=== PATIENT | female | born 1995 | race American Indian/Alaskan Native ===

== ENCOUNTER 2018-04-18 17:47 | Inpatient (IN) | payer BC, MEDICAID ==
[2018-04-18] MEDS ORDERED: BRETHINE SUB-Q PRN (22:09)
[2018-04-18] MEDS ORDERED: NUBAIN IV PRN (22:09)
[2018-04-18] MEDS ORDERED: SUBLIMAZE IV PRN (22:09)
[2018-04-18] MEDS ORDERED: STADOL IV PRN (22:09)
[2018-04-18] MEDS ORDERED: NARCAN 0.4 MG/1 ML IV PRN (22:09)
[2018-04-18] MEDS ORDERED: MINERAL OIL PO PRN (22:09)
[2018-04-18] MEDS ORDERED: ZOFRAN IV PRN (22:09)
[2018-04-18] MEDS ORDERED: BRETHINE IVP PRN (22:09)
[2018-04-18] MEDS ORDERED: XYLOCAINE 2% INFILTRATI ONE (22:09)
[2018-04-18] MEDS ORDERED: HEMABATE IM PRN (22:18)
[2018-04-18] MEDS ORDERED: METHERGINE IM PRN (22:18)
[2018-04-18] MEDS ORDERED: CYTOTEC PR PRN (22:18)
[2018-04-18 22:52] LABS: Hematocrit 32.8 % (30.3-42.9); Hemoglobin 11.3 gm/dl (10.1-14.3); Mean Corpuscular HGB Conc 35 % (30-34); Mean Corpuscular Volume 88 fl (79-97); Platelet Count 222 K/mm3 (140-440); Red Blood Count 3.72 M/mm3 (3.65-5.03); Red Cell Distribution Width 14.7 % (13.2-15.2)
[2018-04-18] MEDS ORDERED: PITOCin/NS 20 UNIT/1000ML DRIP 20 UNITS/1,000 ML BAG IV SCH (23:00)
[2018-04-18] MEDS ORDERED: PITOCin/NS 30 UNIT/500ML 30 UNITS/500 ML BAG IV SCH ×2 (23:00)
--- NOTE | 2018-04-18 23:55 | History and Physical Report ---
History of Present Illness Date of examination: 04/18/18 Date of admission: 04/18/18 21:03 Chief complaint: IUP 40w 5d sent from office for rule out labor. SVE 3.5/50/-3, no change from office, but non reactive NST noted in triage. Admitted for IOL for non reassuring FHTs. History of present illness: Past History : 2 Term Births: 1 Living Children: 1 Para: 1 # 1 Delivery date: 2017 Weeks Gestation: term labor: no Delivery type: Delivery location: [place] Sex: Female weight: 7#1 Past Medical History: Negative Past Medical History Past Surgical History: negative Past Medical History Anesthesia Complications: negative Anemia: negative Autoimmune Disorder: negative Bleeding Disorder: negative Blood Transfusions: negative Breast Disease: negative Diabetes: negative Heart Disease: negative Hypertension: negative Hepatitis/Liver Disease: negative Kidney Disease/UTI: negative Neurologic/Epilepsy/Migraines: negative Phlebitis/Varicosities: negative Psychiatric: negative Pulmonary Disease/Asthma: negative Thyroid Disease: negative Hospitalizations: negative Surgery (Non-early childhood teacher): negative Family Hx: PGF - prostate cancer Social Hx: single hx 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 of genital herpes: no Partner hx. of genital herpes: no Rash, Viral, or Febrile illness since last LMP? no Varicella/Chicken Pox Status: Unknown Genetic History Congenital Heart Defect: Mom: no Dad: no Carter Disease: Mom: no Dad: no Thalassemia Mom: no Dad: no Neural Tube Defect Mom: no Dad: no Down's Syndrome Mom: no Dad: no George-Sachs Mom: no Dad: no Sickle Cell Disease/Trait Mom: no Dad: no Hemophilia Mom: no Dad: no Muscular Dystrophy Mom: no Dad: no Cystic Fibrosis Mom: no Dad: no [place] Chorea Mom: no Dad: no Mental Retardation Mom: no Dad: no Fragile X Mom: no Dad: no Other Genetic/Chromosomal Disorder Mom: no Dad: no Child w/other defect Mom: no Dad: no Enviromental Exposures Xray Exposure: no Medication, drug, or alcohol use since LMP: no Chemical/Other Exposure: no Exposure to Cat Liter: no Hx of Parvovirus (Fifth Disease): no Occupational Exposure to Children: none Active Medications: None Current Allergies (reviewed today): No known allergies Past History Past Medical History: other (see hpi) Past Surgical History: other (see hpi) 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) Family/Genetic History: other (see hpi) Social history: other (see hpi) - Obstetrical History : 2 Medications and Allergies Allergies Allergy/AdvReac Type Severity Reaction Status Date / Time Fish Containing Products Allergy Unknown Verified 04/18/18 18:04 peanut Allergy Unknown Verified 04/18/18 18:04 Active Meds: Active Medications Butorphanol Tartrate (Stadol) 2 mg IV Q2H PRN PRN Reason: Pain , Severe (7-10) Carboprost Tromethamine (Hemabate) 250 mcg IM ONCE PRN PRN Reason: bleeding Ephedrine Sulfate (Ephedrine Sulfate) 10 mg IV Q2M PRN PRN Reason: Hypotension Fentanyl (Sublimaze) 100 mcg IV Q2H PRN PRN Reason: Labor Pain Lactated Ringer's (Lactated Ringers) 1,000 mls @ 125 mls/hr IV DIRECT RASHEEDA Oxytocin/Sodium Chloride (Pitocin/Ns 20 Unit/1000ml Drip) 20 units in 1,000 mls @ 125 mls/hr IV DIRECT RASHEEDA Oxytocin/Sodium Chloride (Pitocin/Ns 30 Unit/500ml) 30 units in 500 mls @ 1 mls/hr IV TITR RASHEEDA; Protocol Oxytocin/Sodium Chloride (Pitocin/Ns 30 Unit/500ml) 30 units in 500 mls @ 4 mls/hr IV TITR RASHEEDA; Protocol Methylergonovine Maleate (Methergine) 0.2 mg IM ONCE PRN PRN Reason: bleeding Mineral Oil (Mineral Oil) 30 ml PO QHS PRN PRN Reason: Constipation Misoprostol (Cytotec) 1,000 mcg ID ONCE PRN PRN Reason: bleeding Nalbuphine HCl (Nubain) 10 mg IV Q2H PRN PRN Reason: Pain, Moderate (4-6) Naloxone HCl (Narcan 0.4 Mg/1 Ml) 0.1 mg IV Q2MIN PRN PRN Reason: Res Rate </= 8 or 02 SAT < 92% Ondansetron HCl (Zofran) 4 mg IV Q8H PRN PRN Reason: Nausea And Vomiting Terbutaline Sulfate (Brethine) 0.25 mg SUB-Q ONCE PRN PRN Reason: Hyperstimulation/Hypertonicity Terbutaline Sulfate (Brethine) 0.25 mg IVP ONCE PRN PRN Reason: Hyperstimulation/Hypertonicity Review of Systems All systems: negative (contractions, pain 5/10.) - Vital Signs Vital signs: Vital Signs Pulse BP 118 H 101/63 04/18/18 18:12 04/18/18 18:12 Temp Pulse Resp BP Pulse Ox 98.7 F 118 H 20 101/63 04/18/18 18:13 04/18/18 18:13 04/18/18 18:13 04/18/18 18:13 - Physical Exam Breasts: Positive: normal Cardiovascular: Regular rate, Normal S1, Normal S2 Lungs: Positive: Clear to auscultation Abdomen: Positive: normal appearance, soft, normal bowel sounds. Negative: distention, tenderness Genitourinary (Female): Positive: normal external genitalia Vulva: both: normal Vagina: Positive: normal moisture. Negative: discharge Cervix: Negative: lesion, discharge Uterus: Positive: normal size, normal contour Adnexa: both: normal Anus/Rectum: Positive: normal perianal skin, heme negative. Negative: rectal mass, hemorrhoids Extremities: Positive: normal Deep Tendon Reflex Grade: Normal +2 - Obstetrical FHR: auscultation normal Cervical Dilatation: 3.5 Cervical Effacement Percentage: 50 station: -2 Uterine Contraction Duration: 50-80 Uterine Contraction Pattern: Regular Uterine Tone Measurement Phase: Contraction Uterine Contraction Intensity: Mild Results Result Diagrams: 04/18/18 20:14 Abnormal lab results 04/18/18 Range/Units 20:14 MCHC 35 H (30-34) % All other labs normal. Assessment and Plan Patient resting in bed, reports regular contractions q3-6 minutes, pain 5/10. Difficulty tracing FHTs externally.GBS negative. AROM performed, large amount of clear fluid noted. IUPC and ISE placed without difficulty. SVE 4.5/70/-2. Reviewed POC with patient, will assess contraction pattern and intensity then start pitocin if needed for adequate labor. Anticipate vaginal delivery.
[2018-04-19] MEDS: LACTATED RINGERS 1,000 ML IV SCH ×2 (00:16→03:35)
[2018-04-19] MEDS ORDERED: NARCAN 2 MG/2 ML IV PRN (01:19)
--- NOTE | 2018-04-19 01:20 | Anesthesia Consultation ---
Anesthesia Consult and Med Hx - Airway Anesthetic Teeth Evaluation: Good ROM Head & Neck: Adequate Mental/Hyoid Distance: Adequate Mallampati Class: Class I Intubation Access Assessment: Good - Pulmonary Exam CTA: Yes - Cardiac Exam Cardiac Exam: RRR - Pre-Operative Health Status ASA Pre-Surgery Classification: ASA2 Proposed Anesthetic Plan: Epidural - Pulmonary Hx Asthma: No - Cardiovascular System Hx Hypertension: No - Central Nervous System Hx Seizures: No Hx Psychiatric Problems: No - Endocrine Hx Renal Disease: No Hx Hypothyroidism: No Hx Hyperthyroidism: No - Hematic Hx Anemia: No Hx Sickle Cell Disease: No - Other Systems Hx Alcohol Use: No
--- NOTE | 2018-04-19 01:21 | Anesthesia Day of Surgery ---
Anesthesia Day of Surgery - Day of Surgery Patient Examined: Yes Patient H&P Reviewed: Yes Patient is NPO: Yes Beta Blockers: No Cardiac Clearance: No Pulmonary Clearance: No Suraj's Test: N/A
[2018-04-19] MEDS ORDERED: fentaNYL-BUPIV 2 MCG/ML-0.125% 200 MCG/100 ML BAG EPIDURAL SCH (02:00)
--- NOTE | 2018-04-19 03:49 | Progress Note ---
Assessment and Plan Patient resting comfortably in bed post epidural placement. Recurrent late decelerations noted on heart tracing. Pitocin off, O2 on 10L non rebreather, LR bolus started, patient placed in left lateral position. BP 80s/50s. One dose of ephidrine IV given. BPs back to baseline. Late decerlations resolved, minimal variability at this time. Dr. Salomon notified of update in patient status. Will continue to monitor with pitocin off. Subjective - Subjective Date of service: 04/19/18 Principal diagnosis: IOL for non reassuring heart tones, post dates Interval history: Past History : 2 Term Births: 1 Living Children: 1 Para: 1 # 1 Delivery date: 2017 Weeks Gestation: term labor: no Delivery type: Delivery location: [place] Sex: Female weight: 7#1 Past Medical History: Negative Past Medical History Past Surgical History: negative Past Medical History Anesthesia Complications: negative Anemia: negative Autoimmune Disorder: negative Bleeding Disorder: negative Blood Transfusions: negative Breast Disease: negative Diabetes: negative Heart Disease: negative Hypertension: negative Hepatitis/Liver Disease: negative Kidney Disease/UTI: negative Neurologic/Epilepsy/Migraines: negative Phlebitis/Varicosities: negative Psychiatric: negative Pulmonary Disease/Asthma: negative Thyroid Disease: negative Hospitalizations: negative Surgery (Non-pit recorder): negative Family Hx: PGF - prostate cancer Social Hx: single hx 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 of genital herpes: no Partner hx. of genital herpes: no Rash, Viral, or Febrile illness since last LMP? no Varicella/Chicken Pox Status: Unknown Genetic History Congenital Heart Defect: Mom: no Dad: no Carter Disease: Mom: no Dad: no Thalassemia Mom: no Dad: no Neural Tube Defect Mom: no Dad: no Down's Syndrome Mom: no Dad: no George-Sachs Mom: no Dad: no Sickle Cell Disease/Trait Mom: no Dad: no Hemophilia Mom: no Dad: no Muscular Dystrophy Mom: no Dad: no Cystic Fibrosis Mom: no Dad: no [place] Chorea Mom: no Dad: no Mental Retardation Mom: no Dad: no Fragile X Mom: no Dad: no Other Genetic/Chromosomal Disorder Mom: no Dad: no Child w/other defect Mom: no Dad: no Enviromental Exposures Xray Exposure: no Medication, drug, or alcohol use since LMP: no Chemical/Other Exposure: no Exposure to Cat Liter: no Hx of Parvovirus (Fifth Disease): no Occupational Exposure to Children: none Active Medications: None Current Allergies (reviewed today): No known allergies Patient reports: movement normal Objective - Vital Signs Vital Signs: Vital Signs - 12hr 04/18/18 04/18/18 04/19/18 18:12 18:13 00:54 Temperature 98.7 F Pulse Rate 118 H 118 H 101 H Respiratory 20 Rate Blood Pressure 101/63 Blood Pressure 101/63 [Left] O2 Sat by Pulse 97 Oximetry 04/19/18 04/19/18 04/19/18 00:59 01:04 01:05 Temperature Pulse Rate 116 H 100 H 97 H Respiratory Rate Blood Pressure 126/68 Blood Pressure [Left] O2 Sat by Pulse 98 97 Oximetry 04/19/18 04/19/18 04/19/18 01:09 01:14 01:15 Temperature Pulse Rate 102 H 95 H 97 H Respiratory Rate Blood Pressure 113/59 126/67 Blood Pressure [Left] O2 Sat by Pulse 97 95 Oximetry 04/19/18 04/19/18 04/19/18 01:19 01:20 01:24 Temperature Pulse Rate 97 H 99 H 107 H Respiratory Rate Blood Pressure 111/61 112/60 110/59 Blood Pressure [Left] O2 Sat by Pulse 95 96 Oximetry 04/19/18 04/19/18 04/19/18 01:29 01:30 01:34 Temperature Pulse Rate 98 H 93 H 94 H Respiratory Rate Blood Pressure 108/59 Blood Pressure [Left] O2 Sat by Pulse 96 96 Oximetry 04/19/18 04/19/18 04/19/18 01:35 01:39 01:40 Temperature Pulse Rate 96 H 96 H 93 H Respiratory Rate Blood Pressure 106/55 102/53 Blood Pressure [Left] O2 Sat by Pulse 95 Oximetry 04/19/18 04/19/18 04/19/18 01:44 01:49 01:54 Temperature Pulse Rate 114 H 100 H 97 H Respiratory Rate Blood Pressure 97/50 106/58 Blood Pressure [Left] O2 Sat by Pulse 97 97 97 Oximetry 04/19/18 04/19/18 04/19/18 01:55 01:59 02:01 Temperature Pulse Rate 97 H 109 H 100 H Respiratory Rate Blood Pressure 101/56 97/52 Blood Pressure [Left] O2 Sat by Pulse 96 94 Oximetry 04/19/18 04/19/18 04/19/18 02:04 02:09 02:11 Temperature Pulse Rate 102 H 107 H 103 H Respiratory Rate Blood Pressure 98/51 80/43 Blood Pressure [Left] O2 Sat by Pulse 97 97 93 Oximetry 04/19/18 04/19/18 04/19/18 02:14 02:15 02:19 Temperature Pulse Rate 97 H 100 H 94 H Respiratory Rate Blood Pressure 79/41 77/42 Blood Pressure [Left] O2 Sat by Pulse 96 97 Oximetry 04/19/18 04/19/18 04/19/18 02:24 02:27 02:29 Temperature Pulse Rate 114 H 105 H 104 H Respiratory Rate Blood Pressure 82/51 94/54 Blood Pressure [Left] O2 Sat by Pulse 96 92 97 Oximetry 04/19/18 04/19/18 04/19/18 02:34 02:35 02:39 Temperature Pulse Rate 96 H 100 H 91 H Respiratory Rate Blood Pressure 82/43 Blood Pressure [Left] O2 Sat by Pulse 93 95 Oximetry 04/19/18 04/19/18 04/19/18 02:40 02:44 02:45 Temperature Pulse Rate 101 H 96 H 94 H Respiratory Rate Blood Pressure 106/59 99/59 Blood Pressure [Left] O2 Sat by Pulse 95 Oximetry 04/19/18 04/19/18 04/19/18 02:49 02:54 02:59 Temperature Pulse Rate 97 H 98 H 98 H Respiratory Rate Blood Pressure 100/55 101/56 Blood Pressure [Left] O2 Sat by Pulse 96 95 96 Oximetry 04/19/18 04/19/18 04/19/18 03:00 03:04 03:06 Temperature Pulse Rate 92 H 107 H 94 H Respiratory Rate Blood Pressure 100/58 105/54 Blood Pressure [Left] O2 Sat by Pulse 96 Oximetry 04/19/18 04/19/18 04/19/18 03:09 03:10 03:12 Temperature Pulse Rate 91 H 93 H 90 Respiratory Rate Blood Pressure 106/55 Blood Pressure [Left] O2 Sat by Pulse 96 94 Oximetry 04/19/18 04/19/18 04/19/18 03:14 03:15 03:17 Temperature Pulse Rate 93 H 94 H 91 H Respiratory Rate Blood Pressure 72/48 102/58 Blood Pressure [Left] O2 Sat by Pulse 97 Oximetry 04/19/18 04/19/18 04/19/18 03:19 03:20 03:24 Temperature Pulse Rate 99 H 96 H 90 Respiratory Rate Blood Pressure 104/55 Blood Pressure [Left] O2 Sat by Pulse 97 97 Oximetry 04/19/18 04/19/18 04/19/18 03:25 03:29 03:34 Temperature Pulse Rate 90 92 H 97 H Respiratory Rate Blood Pressure 102/57 100/67 102/54 Blood Pressure [Left] O2 Sat by Pulse 97 97 Oximetry 04/19/18 04/19/18 03:39 03:40 Temperature Pulse Rate 95 H 96 H Respiratory Rate Blood Pressure 97/56 Blood Pressure [Left] O2 Sat by Pulse 96 Oximetry - Exam Abdomen: Present: normal appearance, soft. Absent: distention, tenderness Vulva: both: normal Uterus: Present: normal FHR: auscultation normal Uterine Contraction Monitor Mode: Internal Cervical Dilatation: 6.5 Cervical Effacement Percentage: 80 station: -1 Uterine Contraction Frequency (min): 1-2 Uterine Contraction Duration: 70-80 Uterine Contraction Pattern: Regular Uterine Tone Measurement Phase: Contraction Uterine Contraction Intensity: Moderate (soft between contractions) - Labs Labs: Abnormal Labs 04/18/18 20:14 MCHC 35 H Laboratory Results - last 24 hr 04/18/18 04/18/18 20:14 20:14 WBC 8.3 RBC 3.72 Hgb 11.3 Hct 32.8 MCV 88 MCH 30 MCHC 35 H RDW 14.7 Plt Count 222 Blood Type B POSITIVE Antibody Screen Negative
--- NOTE | 2018-04-19 06:03 | Event Note ---
Date: 04/19/18 Pitocin has resumed. SVE remains 6.5/80/-1. Ctx q 6-8 minutes, mild. Will continue to increase pitocin as ordered as FHTs allow. Patient remains c omfortable in bed with no complaints. Reviewed continued POC with patient and Dr. Salomon.
--- NOTE | 2018-04-19 07:22 | Event Note ---
Date: 04/19/18 IUPC flushed and adjusted. Ctx q 3-5, moderate by palpation. Moderate variability, occasional variably decelerations. Temp 99.2. SVE /0. Will c ontinue to monitor temp. Continue current plan of care. Anticipate .
--- NOTE | 2018-04-19 07:54 | Procedure Note ---
OB Delivery Note - Delivery Date of Delivery: 04/19/18 ( female) Director Transportation: CITLALY BARRON Estimated blood loss: 200cc - Vaginal Delivery presentation: vertex Delivery position: OA (MORELIA - anterior hand presented before shoulder) Intrapartum events: none Delivery induction: none Delivery augmentation: pitocin Delivery monitor: internal FHT, internal uterine Route of delivery: Delivery placenta: spontaneous Delivery cord: nuchal cord (tight x1) Episiotomy: none Delivery laceration: none Anesthesia: epidural Delivery comments: Female infant del over intact perineum, Head del PARVIN with hand between chin and shoulder. head rotated almost 180 degrees to ROT before anterior shoulder delivered. Tight nuchal chord somersaulted through. 3 vessel cord clamped and cut, infant taken to warmer for assessment. Placenta del intact and complete, no laceration to repair. EBL 200, apgars 7/9, wt 7#5. Mother and delivered intact and complete. - Infant A at 1 minute: 7 at 5 minutes: 9 Gender: Female (7#5)
[2018-04-19] MEDS ORDERED: TUCKS PAD TP PRN (10:50)
[2018-04-19] MEDS ORDERED: PHENERGAN PO PRN (10:50)
[2018-04-19] MEDS ORDERED: DULCOLAX PR PRN (10:50)
[2018-04-19] MEDS ORDERED: DERMOPLAST TP PRN (10:50)
[2018-04-19] MEDS ORDERED: PITOCin/NS 20 UNIT/1000ML DRIP 20 UNITS/1,000 ML BAG IV SCH (10:50)
[2018-04-19] MEDS ORDERED: LANSINOH TP PRN (10:50)
[2018-04-19] MEDS ORDERED: TYLENOL PO PRN (10:50)
[2018-04-19] MEDS ORDERED: SODIUM CHLORIDE FLUSH SYRINGE 10 ML IV NR (10:50)
[2018-04-19] MEDS ORDERED: BENADRYL PO PRN (10:50)
[2018-04-19] MEDS: PRENATAL VITAMIN PO SCH (11:52)
[2018-04-19] MEDS: IBUPROFEN PO SCH ×2 (12:42→18:35)
[2018-04-19] MEDS: PERCOCET 5/325 PO PRN (18:35)
[2018-04-19 21:07] LABS: Hematocrit 32.1 % (30.3-42.9); Hemoglobin 10.8 gm/dl (10.1-14.3)
[2018-04-19] MEDS ORDERED: MILK OF MAGNESIA PO PRN (22:00)
[2018-04-20] MEDS: PERCOCET 5/325 PO PRN ×2 (00:13→10:21)
[2018-04-20] MEDS: IBUPROFEN PO SCH ×3 (04:28→19:05)
[2018-04-20] MEDS ORDERED: BOOSTRIX IM ONE (08:44)
[2018-04-20] MEDS: PRENATAL VITAMIN PO SCH (10:04)
--- NOTE | 2018-04-20 13:52 | Discharge Summary ---
Providers - Providers Date of Admission: 04/18/18 21:03 Date of discharge: 04/20/18 (patient desires discharge today) Attending physician: YONY WALKER Primary care physician: YONY WALKER Hospitalization Reason for admission: IOL for non reassuring heart tones Condition: Good Pertinent studies: post delivery H&H 10.8/32.1 Procedures: Hospital course: uncomplicated labor & delivery and course Disposition: DC-01 TO HOME OR SELFCARE Core Measure Documentation - Palliative Care Palliative Care/ Comfort Measures: Not Applicable - Core Measures Any of the following diagnoses?: none Exam - Constitutional Vitals: Temp Pulse Resp BP Pulse Ox 98.1 F 79 18 92/65 98 04/20/18 07:45 04/20/18 07:45 04/20/18 12:55 04/20/18 07:45 04/20/18 07:45 General appearance: Present: no acute distress, well-nourished - EENT Eyes: Present: PERRL ENT: hearing intact, clear oral mucosa - Neck Neck: Present: supple, normal ROM - Respiratory Respiratory effort: normal Respiratory: bilateral: CTA - Cardiovascular Rhythm: regular Heart Sounds: Present: S1 & S2. Absent: rub, click - Extremities Extremities: pulses symmetrical, No edema Peripheral Pulses: within normal limits - Abdominal General gastrointestinal: Present: soft, non-tender, non-distended, normal bowel sounds Female genitourinary: Present: normal - Integumentary Integumentary: Present: clear, warm, dry - Musculoskeletal Musculoskeletal: gait normal, strength equal bilaterally - Psychiatric Psychiatric: appropriate mood/affect, intact judgment & insight - Neurologic Neurologic: CNII-XII intact, moves all extremities - Additional findings Additional findings: Fundus firm, midline, U/2. scant bleeding. Breast feeding going well, supplementing with formula as needed. Plan Activity: no restrictions Diet: regular Follow up with: YONY WALKER MD [Primary Care Provider] - 05/19/18 (Congratulations! Please call [phone] to schedule your appointment for 4 weeks from now. Call office with and questions or concerns. ) Prescriptions: Ibuprofen [Motrin 800 MG tab] 800 mg PO Q8HR PRN #30 tablet PRN Reason: Pain
[2018-04-20 15:58] VITALS: BP 105/74
== END 2018-04-20 22:00 | disposition home or self-care (01) | DRG 807 ==
LOC: TRG 17:47 → APU 21:03 → LD 21:23 → OB 04-19 09:51
PROVIDERS: ADMIT Obstetrics & Gynecology; ATTEND Obstetrics & Gynecology
PROC: 10E0XZZ Delivery of Products of Conception, External Approach (ICD-10-PCS; principal; 2018-04-19)
PROC: 3E0R3BZ Introduction of Anesthetic Agent into Spinal Canal, Percutaneous Approach (ICD-10-PCS; 2018-04-19)
PROC: 00HU33Z Insertion of Infusion Device into Spinal Canal, Percutaneous Approach (ICD-10-PCS; 2018-04-19)
PROC: 10907ZC Drainage of Amniotic Fluid, Therapeutic from Products of Conception, Via Natural or Artificial Opening (ICD-10-PCS; 2018-04-19)
PROC: 10H07YZ Insertion of Other Device into Products of Conception, Via Natural or Artificial Opening (ICD-10-PCS; 2018-04-19)
PROC: 3E0234Z Introduction of Serum, Toxoid and Vaccine into Muscle, Percutaneous Approach (ICD-10-PCS; 2018-04-20)
DX: O76 Abnormality in fetal heart rate and rhythm complicating labor and delivery (principal); Z37.0 Single live birth; O48.0 Post-term pregnancy; O69.1XX0 Labor and delivery complicated by cord around neck, with compression, not applicable or unspecified; Z3A.40 40 weeks gestation of pregnancy; Z23 Encounter for immunization
CPT/HCPCS: 36415; 85014; 85018; 85027; 86592; 86850; 86900; 86901; 90471; 90715; G0378; A6250; J0595; J2590; J7120